=== PATIENT | male | born 1955 | race Caucasian/White ===

== ENCOUNTER 2017-07-09 19:41 | Emergency (ER) | payer OTHER ==
--- NOTE | 2017-07-09 19:49 | EDM.PDOC ---
ED HPI GENERAL MEDICAL PROBLEM - General Stated Complaint: BACK PAIN Time Seen by Provider: 07/09/17 19:41 Source of Information: Reports: Patient, Family (so) History Limitations: Reports: No Limitations - History of Present Illness INITIAL COMMENTS - FREE TEXT/NARRATIVE: 62 y.o.w.m with a h/o hypercholesterolemia, Sleep apnea, came to the ed 1 day after he woke up in am with severe back pain which prevents him from taking a deep breath due to pain. No pain at rest. No N/V/D or dizziness or any other acute medical issues. BP 158/69 pulse 76 RR 18 Temp 37.1 O2 sat on arrival 95% on RA Onset Date: 07/07/17 Onset Time: 07:00 Duration: Day(s): (2), Getting Worse, Intermittent Location: Reports: Chest Quality: Reports: Dull, Pressure Severity: Moderate Improves with: Reports: Rest Worsens with: Reports: Movement Context: Reports: Other Associated Symptoms: Reports: Shortness of Breath, Other (mid upper back pain) back/thorasic Pain Score (Numeric/FACES): 5 - Related Data Allergies Allergy/AdvReac Type Severity Reaction Status Date / Time No Known Allergies Allergy Verified 07/09/17 19:53 Home Meds: Home Meds atorvaSTATin [Lipitor] 40 mg PO BEDTIME 07/09/17 [History] ED ROS GENERAL - Review of Systems Review Of Systems: See Below Constitutional: Reports: No Symptoms HEENT: Reports: No Symptoms Respiratory: Reports: Shortness of Breath Cardiovascular: Reports: Other (back pain when taking a deep breath) Endocrine: Reports: No Symptoms GI/Abdominal: Reports: No Symptoms : Reports: No Symptoms Musculoskeletal: Reports: Back Pain Skin: Reports: No Symptoms Neurological: Reports: No Symptoms Psychiatric: Reports: No Symptoms Hematologic/Lymphatic: Reports: No Symptoms Immunologic: Reports: No Symptoms ED EXAM, GENERAL - Physical Exam Exam: See Below Exam Limited By: Respiratory Distress General Appearance: Alert, WD/WN, Moderate Distress Eye Exam: Bilateral Eye: Normal Inspection Ears: Normal External Exam, Normal Canal Ear Exam: Bilateral Ear: Auricle Normal Nose: Normal Inspection, Normal Mucosa, No Blood Throat/Mouth: Normal Inspection, Normal Lips, Normal Gums, Normal Voice, No Airway Compromise Head: Atraumatic, Normocephalic Neck: Normal Inspection, Supple, Non-Tender, Full Range of Motion Respiratory/Chest: Respiratory Distress, Decreased Breath Sounds (Right lower lung), Pleural Rub Cardiovascular: Normal Peripheral Pulses, Regular Rate, Rhythm, No Edema, No Gallop, No JVD, No Murmur, No Rub Peripheral Pulses: 1+: Radial (L) GI/Abdominal: Normal Bowel Sounds, Soft, Non-Tender, No Organomegaly, No Distention, No Abnormal Bruit, No Mass, Pelvis Stable (Male) Exam: Deferred Rectal (Males) Exam: Deferred Back Exam: Normal Inspection, Full Range of Motion Extremities: Normal Inspection, Normal Range of Motion, Non-Tender, No Pedal Edema, Normal Capillary Refill Neurological: Alert, Oriented, CN II-XII Intact, Normal Cognition, Normal Gait, No Motor/Sensory Deficits Psychiatric: Normal Affect, Normal Mood Skin Exam: Warm, Dry, Intact, Normal Color, No Rash Lymphatic: No Adenopathy EKG INTERPRETATION EKG Date: 07/09/17 Time: 22:45 Rhythm: NSR Rate (Beats/Min): 75 [place]: Normal P-Wave: Present QRS: Normal ST-T: Normal QT: Normal Comparison: NA - No Prior EKG Course - Vital Signs Text/Narrative:: 62 y.o.w.m with a h/o hypercholesterolemia, Sleep apnea, came to the ed 1 day after he woke up in am with severe back pain which prevents him from taking a deep breath due to pain. No pain at rest. No N/V/D or dizziness or any other acute medical issues. BP 158/69 pulse 76 RR 18 Temp 37.1 O2 sat on arrival 95% on RA PE: 62 y.o.w.m with h/o hypercholesterolemia, sleep apnea, on a C-pep, came to the ed with SOB when taking a deep breath Imaging: CXR, CT chest: Air space disease with peripheral PE, Pulmonary infarction and pneumonia DDX; Pulm hemorrhage Labs: WBC 14.5K Lactic acid 1.1 BUN 22, Cr 1.1 Na 138 K 4.0 H/H nl Troponin. Pt. PTT and INR are pending Impression: Air space disease with peripheral PE, Pulmonary infarction and pneumonia DDX; Pulm infarction Tx: O2 by NS, Levoquine and Heparin drip with bolus 9.37 pm Consultation: Dr. Vogel: Transfere to [place] 9.57 pm Consultation: Dr. Sinclair, Hospitalist, [facility]: Accepted the pt fro admission and further care, Heparin Drip with bolus to be started prior to transfer. Reexam: Improved plan: transfer to [facility], Family was kept informed. Last Recorded V/S: Last Vital Signs Temp 37.2 C 07/09/17 22:00 Pulse 76 07/09/17 22:00 Resp 22 H 07/09/17 22:00 BP 146/92 H 07/09/17 22:00 Pulse Ox 95 07/09/17 22:00 - Orders/Labs/Meds Orders: Active Orders 24 hr Category Date Time Status EKG Documentation Completion [RC] ASDIRECTED Care 07/09/17 22:39 Active Oxygen Therapy Adult [Oxygen Therapy, ED] [RC] Care 07/09/17 20:55 Active ASDIRECTED Ang Chest [CT] Stat Exams 07/09/17 20:30 Taken Chest 2V [CR] Stat Exams 07/09/17 19:50 Taken CULTURE BLOOD [BC] Urgent Lab 07/09/17 20:40 Received CULTURE BLOOD [BC] Urgent Lab 07/09/17 20:45 Received Blood Culture x2 Reflex Set [OM.PC] Urgent Oth 07/09/17 20:31 Ordered Peripheral IV Insertion Adult [OM.PC] Routine Oth 07/09/17 20:30 Ordered EKG 12 Lead [EK] Routine Ther 07/09/17 22:38 Ordered Labs: Laboratory Tests 07/09/17 07/09/17 07/09/17 Range/Units 19:55 19:55 19:55 WBC 14.2 H (4.5-12.0) X10-3/uL RBC 5.16 (4.30-5.75) x10(6)uL Hgb 14.4 (11.5-15.5) g/dL Hct 43.3 (30.0-51.3) % MCV 84.0 (80-96) fL MCH 27.9 (27.7-33.6) pg MCHC 33.2 (32.2-35.4) g/dL RDW 12.6 (11.5-15.5) % Plt Count 232 (125-369) X10(3)uL MPV 7.3 L (7.4-10.4) fL Add Manual Diff Yes Neutrophils % (Manual) 72 (46-82) % Band Neutrophils % 7 H (0-6) % Lymphocytes % (Manual) 8 L (13-37) % Monocytes % (Manual) 13 H (4-12) % PT (8.7-11.1) INR (0.89-1.13) APTT (24.4-33.2) SECONDS D-Dimer, Quantitative 1.38 H (0.0-0.59) mg/LFEU Sodium 138 (135-145) mmol/L Potassium 4.0 (3.5-5.3) mmol/L Chloride 102 (100-110) mmol/L Carbon Dioxide 26 (21-32) mmol/L BUN 22 H (7-18) mg/dL Creatinine 1.1 (0.70-1.30) mg/dL Est Cr Clr Drug Dosing 73.21 mL/min Estimated GFR (MDRD) > 60 (>60) BUN/Creatinine Ratio 20.0 (9-20) Glucose 114 (80-116) mg/dL Lactic Acid (0.4-2.2) mmol/L Calcium 8.7 (8.6-10.2) mg/dL Creatine Kinase 179 H (60-160) IU/L Troponin I (<0.017-0.056) ng/mL 07/09/17 07/09/17 07/09/17 Range/Units 19:55 19:55 19:55 WBC (4.5-12.0) X10-3/uL RBC (4.30-5.75) x10(6)uL Hgb (11.5-15.5) g/dL Hct (30.0-51.3) % MCV (80-96) fL MCH (27.7-33.6) pg MCHC (32.2-35.4) g/dL RDW (11.5-15.5) % Plt Count (125-369) X10(3)uL MPV (7.4-10.4) fL Add Manual Diff Neutrophils % (Manual) (46-82) % Band Neutrophils % (0-6) % Lymphocytes % (Manual) (13-37) % Monocytes % (Manual) (4-12) % PT 9.5 (8.7-11.1) INR 0.98 (0.89-1.13) APTT 24.7 (24.4-33.2) SECONDS D-Dimer, Quantitative (0.0-0.59) mg/LFEU Sodium (135-145) mmol/L Potassium (3.5-5.3) mmol/L Chloride (100-110) mmol/L Carbon Dioxide (21-32) mmol/L BUN (7-18) mg/dL Creatinine (0.70-1.30) mg/dL Est Cr Clr Drug Dosing mL/min Estimated GFR (MDRD) (>60) BUN/Creatinine Ratio (9-20) Glucose (80-116) mg/dL Lactic Acid (0.4-2.2) mmol/L Calcium (8.6-10.2) mg/dL Creatine Kinase (60-160) IU/L Troponin I < 0.017 L (<0.017-0.056) ng/mL 07/09/17 Range/Units 20:40 WBC (4.5-12.0) X10-3/uL RBC (4.30-5.75) x10(6)uL Hgb (11.5-15.5) g/dL Hct (30.0-51.3) % MCV (80-96) fL MCH (27.7-33.6) pg MCHC (32.2-35.4) g/dL RDW (11.5-15.5) % Plt Count (125-369) X10(3)uL MPV (7.4-10.4) fL Add Manual Diff Neutrophils % (Manual) (46-82) % Band Neutrophils % (0-6) % Lymphocytes % (Manual) (13-37) % Monocytes % (Manual) (4-12) % PT (8.7-11.1) INR (0.89-1.13) APTT (24.4-33.2) SECONDS D-Dimer, Quantitative (0.0-0.59) mg/LFEU Sodium (135-145) mmol/L Potassium (3.5-5.3) mmol/L Chloride (100-110) mmol/L Carbon Dioxide (21-32) mmol/L BUN (7-18) mg/dL Creatinine (0.70-1.30) mg/dL Est Cr Clr Drug Dosing mL/min Estimated GFR (MDRD) (>60) BUN/Creatinine Ratio (9-20) Glucose (80-116) mg/dL Lactic Acid 1.1 (0.4-2.2) mmol/L Calcium (8.6-10.2) mg/dL Creatine Kinase (60-160) IU/L Troponin I (<0.017-0.056) ng/mL Meds: Medications Discontinued Medications Generic Name Dose Route Start Last Admin Trade Name Freq PRN Reason Stop Dose Admin Heparin Sodium (Porcine) 60 units 07/09/17 22:10 Heparin Sodium IVPUSH 07/09/17 22:11 .BOLUS ONE Heparin Sodium (Porcine) 4,000 units 07/09/17 22:14 07/09/17 22:24 Heparin Sodium IVPUSH 07/09/17 22:15 4,000 units .BOLUS STA Administration Levofloxacin/Dextrose 750 mg/ 150 mls @ 100 mls/hr 07/09/17 21:48 07/09/17 22 :10 Premix IV 07/09/17 23:17 100 mls/hr ONETIME ONE Administration Heparin Sodium/Sodium Chloride 25,000 units in 500 mls @ 21.228 mls/hr 22:15 07/09/17 22:24 Heparin 25,000 Units In 1/2 Ns 500 Ml IV 12 units/kg/hr TITRATE JAYDEN 21.228 mls/hr Administration Protocol 12 UNITS/KG/HR Iopamidol 75 ml 07/09/17 20:30 07/09/17 20:53 Isovue-370 (76%) IV 07/09/17 20:31 75 ml ONETIME ONE Administration Sodium Chloride 10 ml 07/09/17 21:00 07/09/17 22:20 Saline Flush FLUSH 10 ml ASDIRECTED PRN Administration Keep Vein Open Departure - Departure Time of Disposition: 19:00 Disposition: DC/Tfer to Acute Hospital 02 Condition: Fair Clinical Impression: Pulmonary emboli Qualifiers: Chronicity: acute Acute cor pulmonale presence: with acute cor pulmonale - Discharge Information Referrals: PCP,None [Ordering Only Provider] - Forms: ED Department Discharge - My Orders Last 24 Hours: My Active Orders 07/09/17 19:50 Chest 2V [CR] Stat 07/09/17 20:30 Ang Chest [CT] Stat Peripheral IV Insertion Adult [OM.PC] Routine 07/09/17 20:31 Blood Culture x2 Reflex Set [OM.PC] Urgent 07/09/17 20:40 CULTURE BLOOD [BC] Urgent 07/09/17 20:45 CULTURE BLOOD [BC] Urgent 07/09/17 20:55 Oxygen Therapy Adult [Oxygen Therapy, ED] [RC] ASDIRECTED 07/09/17 22:38 EKG 12 Lead [EK] Routine 07/09/17 22:39 EKG Documentation Completion [RC] ASDIRECTED - Assessment/Plan Last 24 Hours: My Active Orders 07/09/17 19:50 Chest 2V [CR] Stat 07/09/17 20:30 Ang Chest [CT] Stat Peripheral IV Insertion Adult [OM.PC] Routine 07/09/17 20:31 Blood Culture x2 Reflex Set [OM.PC] Urgent 07/09/17 20:40 CULTURE BLOOD [BC] Urgent 07/09/17 20:45 CULTURE BLOOD [BC] Urgent 07/09/17 20:55 Oxygen Therapy Adult [Oxygen Therapy, ED] [RC] ASDIRECTED 07/09/17 22:38 EKG 12 Lead [EK] Routine 07/09/17 22:39 EKG Documentation Completion [RC] ASDIRECTED
[2017-07-09] MEDS: Sodium Chloride 0.9% 10 ML Syringe FLUSH PRN ×2 (20:30→22:20)
[2017-07-09] MEDS ORDERED: Iopamidol 755 Mg/ML 75 ML Bottle IV ONE (20:30)
[2017-07-09] MEDS ORDERED: Levofloxacin/Dextrose 5%-Water 750 MG in Premix Bag 1 BAG IV ONE (21:48)
[2017-07-09] MEDS ORDERED: Heparin Sodium 5,000 Units/ML Vial IVPUSH ONE (22:10)
[2017-07-09] MEDS ORDERED: Heparin Sodium 5,000 Units/ML Vial IVPUSH STA (22:14)
[2017-07-09] MEDS ORDERED: Heparin Sodium/0.45% NaCl 25,000 UNITS/500 ML BAG IV SCH (22:15)
--- NOTE | 2017-07-11 13:59 | CR ---
INDICATION: Short of breath, pain at right scapular inferior angle level, just lateral from spine, unable to take deep breaths. CHEST: PA and two lateral views of the chest were obtained and revealed pleural parenchymal changes at the right lower lobe and possibly middle lobe, raising question of pneumonia and pleuritis. Minimal pneumonia and pleuritis could also be present at the left lower lobe versus fibrosis. The heart did not appear grossly enlarged. The aorta is tortuous with calcification in the arch. Degenerative changes are noted in the spine. IMPRESSION: 1. Likely bibasilar pneumonia and pleuritis - correlate clinically. 2. Probable ASHD - heart not definitely enlarged, however. MTDD
== END 2017-07-09 22:45 ==
LOC: FB.ED 19:41
DX: J18.9 Pneumonia, unspecified organism (principal); I26.99 Other pulmonary embolism without acute cor pulmonale; E78.00 Pure hypercholesterolemia, unspecified; G47.30 Sleep apnea, unspecified
CPT/HCPCS: 36415; 71046; 71275; 80048; 82550; 83605; 84484; 85025; 85379; 85610; 85730; 87040; 93005; 96365; 99285; J1644; J1956; J7050; Q9967